=== PATIENT | female | born 1965 | race Caucasian/White ===

== ENCOUNTER 2018-09-07 10:43 | Emergency (ER) | payer OTHER ==
--- NOTE | 2018-09-07 11:18 | UC ---
Complaint Female HPI - HPI Summary HPI Summary: Yesterday AM started w/ dysuria and then today noticed blood in urine. Has had UTI in the distant past. denies fever, back pain - History Of Current Complaint Chief Complaint: UCGU Stated Complaint: URINARY ISSUE Time Seen by Provider: 09/07/18 11:15 Hx Obtained From: Patient ?: No Pain Intensity: 2 Pain Scale Used: 0-10 Numeric Character: Burning Aggravating Factor(s): Urination Alleviating Factor(s): Nothing Associated Signs And Symptoms: Negative: Fever, Back Pain, Vomiting(# Of Episodes =) - Allergies/Home Medications Allergies/Adverse Reactions: Allergies Allergy/AdvReac Type Severity Reaction Status Date / Time No Known Allergies Allergy Verified 09/07/18 10:55 PMH/Surg Hx/FS Hx/Imm Hx - Additional Past Medical History Additional PMH: no chronic conditions. Previously Healthy: Yes - Surgical History Surgical History: Yes - Family History Known Family History: Positive: None - Social History Alcohol Use: Occasionally Substance Use Type: None Smoking Status (MU): Never Smoked Tobacco Review of Systems All Other Systems Reviewed And Are Negative: Yes Constitutional: Negative: Fever, Chills Skin: Negative: Rash Cardiovascular: Positive: Negative Gastrointestinal: Negative: Abdominal Pain Genitourinary: Positive: Dysuria, Hematuria. Negative: Vaginal/Penile Discharge Physical Exam Triage Information Reviewed: Yes Appearance: Well-Appearing Vital Signs: Initial Vital Signs Temp 98.5 F 09/07/18 10:52 Pulse 86 09/07/18 10:52 Resp 16 09/07/18 10:52 BP 100/52 09/07/18 10:52 Pulse Ox 100 09/07/18 10:52 Vital Signs Reviewed: Yes Respiratory Exam: Normal Cardiovascular Exam: Normal Abdomen Description: Positive: Nontender, Soft. Negative: CVA Tenderness (R), CVA Tenderness (L) Neurological: Positive: Alert Complaint Female Dx - Course Course Of Treatment: Acute Dysuria , hematuria w/ no assoc. fever. UA did show +leuks, blood. declined gc/chlam testing. Exam unremarkable. vitals stable. will tx empirically and send for cx. - Differential Dx/Diagnosis Differential Diagnosis/HQI/PQRI: Urinary Tract Infection Provider Diagnosis: UTI (urinary tract infection) Discharge - Sign-Out/Discharge Documenting (check all that apply): Patient Departure All imaging exams completed and their final reports reviewed: No Studies - Discharge Plan Condition: Good Disposition: HOME Prescriptions: Nitrofurantoin Monohyd/M-Cryst [Macrobid 100 mg Capsule] 100 mg PO BID 5 Days # 10 cap Patient Education Materials: Urinary Tract Infection in Women (ED) Referrals: [facility] [Outside] Additional Instructions: If not improving please follow up with primary care. - Billing Disposition and Condition Condition: GOOD Disposition: Home
== END 2018-09-07 11:56 | disposition home or self-care (01) ==
LOC: UCEAST 10:43
DX: N39.0 Urinary tract infection, site not specified (principal); Z87.440 Personal history of urinary (tract) infections
CPT/HCPCS: 81003; 87077; 87086; 87186; 99202; G0463